=== PATIENT | male | born 1950 | race Caucasian/White ===

== ENCOUNTER 2024-02-24 04:05 | Inpatient (IN) | payer OTHER ==
[2024-02-19 16:22] VITALS: BMI 25.4
[2024-02-24] MEDS ORDERED: cefOXitin SODIUM 2 GM VIAL (RESTRICTED TO ID) IVPB ONE (07:34)
[2024-02-24] MEDS ORDERED: BUPIVACAINE HCL/PF 0.25% (2.5MG/ML) 10 ML VIAL ONE (07:34)
[2024-02-24] MEDS ORDERED: HEPARIN NA (PORCINE) 5,000 UNITS/ML 1ML VIAL ONE (07:34)
[2024-02-24 11:23] LABS: POTASSIUM 4.6 mmol/L (3.5-5.1)
[2024-02-24 11:25] LABS: ALBUMIN 3.8 g/dl (3.4-5.0); CALCIUM 9.4 mg/dL (8.5-10.1)
[2024-02-24 11:26] LABS: BLOOD UREA NITROGEN 9.3 mg/dL (7-18)
[2024-02-24 11:30] LABS: BILIRUBIN,TOTAL 1.8 mg/dL (0.2-1); TOT PROT 5.8 g/dl (6.4-8.2)
[2024-02-24] MEDS ORDERED: ROCURONIUM BROMIDE 50 MG/5 ML SYRINGE ONE ×2 (11:37→13:03)
[2024-02-24] MEDS ORDERED: SUCCINYLCHOLINE CHLORIDE 200 MG/10 ML SYRINGE ONE (11:37)
[2024-02-24] MEDS ORDERED: PROPOFOL 40 ML ONE (11:37)
[2024-02-24] MEDS: cefOXitin SODIUM 2 GM VIAL (RESTRICTED TO ID) IVPB ONE ×2 (12:00)
[2024-02-24] MEDS: BUPIVACAINE HCL/PF 0.25% (2.5MG/ML) 10 ML VIAL IJ ONE ×3 (13:20)
[2024-02-24] MEDS ORDERED: SUGAMMADEX SODIUM 200 MG/2 ML VIAL ONE (14:46)
[2024-02-24] MEDS ORDERED: hydrALAZINE HCL 20 MG/ML VIAL ONE (16:23)
[2024-02-24] MEDS: hydrALAZINE HCL 20 MG/ML VIAL IVPUSH ONE ×2 (16:25→17:38)
[2024-02-24] MEDS: ACETAMINOPHEN 1000 MG/100 ML BAG IVPB SCH (16:45)
[2024-02-24] MEDS ORDERED: PROPOFOL 20 ML ONE (18:19)
[2024-02-24] MEDS: GENTAMICIN SO4 80 MG/2 ML VIAL IVPB ONE (18:35)
[2024-02-24] MEDS ORDERED: ONDANSETRON 4 MG/2 ML VIAL ONE (18:47)
[2024-02-24] MEDS ORDERED: ONDANSETRON 4 MG/2 ML VIAL IVPUSH PRN (19:37)
[2024-02-24] MEDS: LACTATED RINGERS SOLUTION 1,000 ML IV SCH (19:55)
[2024-02-24] MEDS: PIPERACILLIN/TAZOB 3.375 GM 3.375 GM in DEXTROSE 5%-WATER - 50 ML IVPB SCH (20:01)
[2024-02-24] MEDS: clonazePAM 0.5 MG TABLET PO SCH (22:40)
[2024-02-24] MEDS: HALOPERIDOL 5 MG TABLET PO SCH (22:49)
[2024-02-24 23:11] VITALS: RESP 18
[2024-02-25] MEDS: LOSARTAN POTASSIUM 25 MG TABLET PO SCH (09:29)
[2024-02-25] MEDS: ASPIRIN 81 MG CHEWABLE TABLETS PO SCH (09:29)
[2024-02-25] MEDS: oxyCODONE HCL 5 MG TABLET PO PRN (09:29)
[2024-02-25] MEDS: TRIHEXYPHENIDYL HCL 2 MG TABLET PO SCH (09:31)
[2024-02-25] MEDS: amLODIPine BESYLATE 5 MG TABLET (FP) PO SCH (09:32)
[2024-02-25 10:28] LABS: BASO % 0.2 % (0-2.0); EOS % 0.1 % (0-4.5); HEMATOCRIT 37.9 % (35.4-49); HEMOGLOBIN 13.6 GM/dL (11.7-16.9); LYMPH % 7.4 % (8-40); MCH 32.1 pg (25.7-33.7); MCHC 35.8 g/dl (32.0-35.9); MEAN CELL VOLUME 89.4 fl (80-96); MEAN PLT VOLUME 9.1 fl (7.5-11.1); MONO % 4.9 % (3.8-10.2); NEUT % 87.4 % (42.8-82.8); PLATELET COUNT 127 10^3/uL (134-434); RBC 4.23 M/mm3 (4.00-5.60); RDW 14.6 % (11.9-15.9); WHITE BLOOD COUNT 12.7 K/mm3 (4.0-10.0)
[2024-02-25 10:49] LABS: CALCIUM 9.3 mg/dL (8.5-10.1)
[2024-02-25 10:50] LABS: BLOOD UREA NITROGEN 10.4 mg/dL (7-18)
[2024-02-25 10:53] LABS: CREATININE 1.1 mg/dL (0.55-1.3)
[2024-02-26 08:16] LABS: EPI CELLS 2 /uL (0-25.1); HYALINE CASTS 0 /uL (0-3.1); URINE APPEARANCE CLEAR; URINE BACTERIA 2 /uL (0-1359); URINE BILIRUBIN NEGATIVE (NEGATIVE); URINE COLOR RED; URINE GLUCOSE (UA) NEGATIVE (NEGATIVE); URINE KETONE NEGATIVE (NEGATIVE); URINE LEUK ESTERASE 1+ (NEGATIVE); URINE NITRITE NEGATIVE (NEGATIVE); URINE PROTEIN TRACE (NEGATIVE); URINE WBC 15 /uL (0-25.8)
[2024-02-26 08:49] LABS: URINE RBC 328 /uL (0-23.9); YEAST NONE SEEN (NEGATIVE)
[2024-02-26] MEDS: ACETAMINOPHEN 500 MG TABLET (FP) PO PRN (09:50)
[2024-02-26 10:13] LABS: BASO % 0.4 % (0-2.0); HEMATOCRIT 38.2 % (35.4-49); HEMOGLOBIN 13.8 GM/dL (11.7-16.9); LYMPH % 9.2 % (8-40); MCH 32.3 pg (25.7-33.7); MCHC 36.2 g/dl (32.0-35.9); MEAN CELL VOLUME 89.2 fl (80-96); MEAN PLT VOLUME 9.2 fl (7.5-11.1); MONO % 6.2 % (3.8-10.2); NEUT % 83.2 % (42.8-82.8); PLATELET COUNT 104 10^3/uL (134-434); RBC 4.28 M/mm3 (4.00-5.60); RDW 14.5 % (11.9-15.9); WHITE BLOOD COUNT 9.8 K/mm3 (4.0-10.0)
[2024-02-26 10:22] LABS: POTASSIUM 4.1 mmol/L (3.5-5.1)
[2024-02-26 10:27] LABS: BLOOD UREA NITROGEN 15.2 mg/dL (7-18); CALCIUM 9.1 mg/dL (8.5-10.1)
[2024-02-27 09:58] LABS: HEMATOCRIT 37.7 % (35.4-49); HEMOGLOBIN 13.5 GM/dL (11.7-16.9); MCH 32.1 pg (25.7-33.7); MCHC 35.8 g/dl (32.0-35.9); MEAN CELL VOLUME 89.8 fl (80-96); MEAN PLT VOLUME 8.9 fl (7.5-11.1); PLATELET COUNT 104 10^3/uL (134-434); RDW 14.3 % (11.9-15.9); WHITE BLOOD COUNT 8.5 K/mm3 (4.0-10.0)
[2024-02-27 10:21] LABS: POTASSIUM 3.8 mmol/L (3.5-5.1)
[2024-02-27 10:38] LABS: ALBUMIN 3.4 g/dl (3.4-5.0); BLOOD UREA NITROGEN 13.6 mg/dL (7-18); CALCIUM 9.1 mg/dL (8.5-10.1); MAGNESIUM 1.9 mg/dL (1.8-2.4)
[2024-02-27 10:43] LABS: BILIRUBIN,TOTAL 1.7 mg/dL (0.2-1); TOT PROT 5.8 g/dl (6.4-8.2)
[2024-02-28] MEDS: AMOX TR/POT CLAV 875MG/125MG TABLETS (FP) PO SCH (17:33)
[2024-03-01 09:44] LABS: BASO % 0.5 % (0-2.0); EOS % 2.7 % (0-4.5); HEMATOCRIT 38.7 % (35.4-49); HEMOGLOBIN 13.9 GM/dL (11.7-16.9); LYMPH % 9.7 % (8-40); MCH 31.8 pg (25.7-33.7); MCHC 35.8 g/dl (32.0-35.9); MEAN CELL VOLUME 88.8 fl (80-96); MEAN PLT VOLUME 8.8 fl (7.5-11.1); MONO % 6.6 % (3.8-10.2); NEUT % 80.5 % (42.8-82.8); PLATELET COUNT 122 10^3/uL (134-434); RBC 4.36 M/mm3 (4.00-5.60); RDW 14.2 % (11.9-15.9); WHITE BLOOD COUNT 8.8 K/mm3 (4.0-10.0)
[2024-03-01 10:02] LABS: POTASSIUM 3.6 mmol/L (3.5-5.1)
[2024-03-01 10:06] LABS: BLOOD UREA NITROGEN 10.5 mg/dL (7-18); CALCIUM 9.2 mg/dL (8.5-10.1)
[2024-03-01 10:09] LABS: CREATININE 0.8 mg/dL (0.55-1.3)
[2024-03-01] MEDS ORDERED: INSULIN ASPART SLIDING SCALE (NOVOLOG) 1 VIAL SQ ONE (11:19)
[2024-03-01 15:25] VITALS: BP 120/70; PULSE 85; TEMP 97.3
== END 2024-03-01 20:10 | DRG 352 ==
LOC: JASU-SURG 04:05 → J2C 15:15 → J6S 20:46
PROVIDERS: ADMIT Surgery; ATTEND Internal Medicine
PROC: 0T9B80Z Drainage of Bladder with Drainage Device, Via Natural or Artificial Opening Endoscopic (ICD-10-PCS; 2024-02-24)
PROC: 0YU50JZ Supplement Right Inguinal Region with Synthetic Substitute, Open Approach (ICD-10-PCS; principal; 2024-02-24 11:00)
PROC: 0T768ZZ Dilation of Right Ureter, Via Natural or Artificial Opening Endoscopic (ICD-10-PCS; 2024-02-24 11:00)
DX: K40.90 Unilateral inguinal hernia, without obstruction or gangrene, not specified as recurrent (principal); N32.0 Bladder-neck obstruction; I10 Essential (primary) hypertension; R33.9 Retention of urine, unspecified; I48.91 Unspecified atrial fibrillation; N13.5 Crossing vessel and stricture of ureter without hydronephrosis; Z53.31 Laparoscopic surgical procedure converted to open procedure; N36.44 Muscular disorders of urethra; H91.93 Unspecified hearing loss, bilateral; N40.0 Benign prostatic hyperplasia without lower urinary tract symptoms
CPT/HCPCS: 36415; 72192-TC; 80048; 80053; 81003; 83735; 83930; 83935; 84100; 84300; 85025; 85027; 86850; 86900; 86901; 87635; 88304-TC; 94010; 94760; 97116-GP; 97162-GP; C1769; C1781; J0131; J1644